=== PATIENT | male | born 1945 | race Caucasian/White ===

== ENCOUNTER 2017-05-13 06:47 | Inpatient (IN) | payer MEDICARE, MEDICAID ==
[2017-05-13] VITALS (23 sets, daily range): BP systolic 111–156; BP diastolic 48–103
[~2017-05-13] VITALS: Ht 175.3 cm; Wt 95.8 kg
[~2017-05-13 06:47] MED LIST: AMLO2.5T45 PO; ASPI-1159 PO; ASPI-986 PO; CHOL100044 GT; CLON0.2T12; FURO20TA4 PO; GABA-531 PO; GLUC1CAP8 PO; INSLIS SQ; INSU300I SQ; LOSA25TA12; METO50TA5 PO; MULT-1008 PO; PRAS10TA6 PO; RANO500T3 PO; SIMV20TA6; TAMS0.4C31 PO; TRAM50TA3 PO
[2017-05-13] MEDS ORDERED: TICA90TA PO (08:51)
[2017-05-13] MEDS ORDERED: ASCO500W7 PO (08:51)
[2017-05-13] MEDS ORDERED: MIDAZOLAM HCL 2 MG/2 ML VIAL ONE ×2 (10:23→11:48)
[2017-05-13] MEDS ORDERED: IODIXANOL 320MG/ML 100 ML BOTTLE IV ONE (10:24)
[2017-05-13] MEDS ORDERED: LIDOCAINE HCL 1% 20ML VIAL (Pyxis) INJ ONE (10:24)
[2017-05-13] MEDS ORDERED: FENTANYL CITRATE/PF 50MCG/ML 2ML VIAL ONE (10:24)
[2017-05-13] MEDS ORDERED: IODIXANOL 320MG/ML 200ML BOTTLE ONE (10:39)
[2017-05-13] MEDS ORDERED: HEPARIN SODIUM 1,000 UNIT/1ML VIAL IV ONE ×2 (10:44→11:11)
[2017-05-13] MEDS ORDERED: IOVERSOL 240MG/ML 100ML BOTTLE IV ONE (11:17)
[2017-05-13] MEDS ORDERED: ATROPINE SULFATE 0.1MG/ML 10ML DISP.SYRIN ONE (11:48)
[2017-05-13] MEDS ORDERED: ASPIRIN 325MG TABLET ONE (12:16)
[2017-05-13] MEDS ORDERED: TICAGRELOR 90 MG TABLET PO ONE (12:16)
[2017-05-13] MEDS ORDERED: DEXTROSE 50% WATER 50ML SYRINGE IV PRN (12:30)
[2017-05-13] MEDS ORDERED: SODIUM CHLORIDE 0.45% 1,000 ML IV ONE (12:30)
[2017-05-13] MEDS: INSULIN LISPRO 100 UNITS/ML SUBCUT SCH ×3 (12:57→21:43)
[2017-05-13] MEDS ORDERED: LOSARTAN POTASSIUM 25 MG TABLET PO SCH (13:00)
[2017-05-13] MEDS ORDERED: AMLODIPINE 2.5MG TABLET PO SCH (13:00)
[2017-05-13] MEDS: CLONIDINE 0.2MG TABLET PO SCH (13:00)
[2017-05-13] MEDS: BLOOD SUGAR DIAGNOSTIC STRIP TEST SCH ×3 (13:24→21:44)
[2017-05-13] MEDS: TAMSULOSIN HCL 0.4MG SR CAPSULE PO SCH (13:31)
[2017-05-13] MEDS: FUROSEMIDE 20MG TABLET PO SCH (13:31)
[2017-05-13] MEDS: TICAGRELOR 90 MG TABLET PO SCH (13:32)
[2017-05-13] MEDS: METOPROLOL TARTRATE 50MG TABLET PO SCH ×2 (14:10→21:41)
[2017-05-13] MEDS: CHOLECALCIFEROL (D3) 1000 UNIT TABLET GT SCH (14:34)
[2017-05-13] MEDS ORDERED: ZOLPIDEM TARTRATE 5MG TABLET PO PRN (14:45)
[2017-05-13] MEDS: GABAPENTIN 300MG CAPSULE PO SCH (16:22)
[2017-05-13] MEDS: RANOLAZINE 500 MG TAB.SR.12H PO SCH (16:22)
[2017-05-13] MEDS: LOSARTAN POTASSIUM 50 MG TABLET PO SCH ×2 (16:48→21:41)
[2017-05-13] MEDS ORDERED: ATORVASTATIN CALCIUM 10MG TABLET PO SCH (21:00)
[2017-05-13] MEDS ORDERED: INSULIN DETEMIR UD 100 UNITS/ML SYR SUBCUT SCH ×2 (21:00→22:00)
[2017-05-13] MEDS ORDERED: MEDICATION NOT ON FORMULARY EA (Simvastatin 20 MG) PO SCH (21:00)
[2017-05-14] VITALS (8 sets, daily range): BP systolic 111–141; BP diastolic 43–78
[2017-05-14] MEDS: BLOOD SUGAR DIAGNOSTIC STRIP TEST SCH ×2 (06:06→11:34)
[2017-05-14 07:32] LABS: BASOPHILS % 0.6 % (0.0-2.0); HEMATOCRIT. 31.7 % (42.0-52.0); HEMOGLOBIN. 10.8 g/dL (14.0-18.0); LYMPHOCYTES % 20.1 % (20.0-50.0); MEAN CORPUSCULAR HEMOGLOBIN 29.9 pg (28.0-32.0); MEAN PLATELET VOLUME 8.4 fl (7.4-10.4); MONOCYTES % 9.4 % (2.0-8.0); NEUTROPHILS % 64.9 % (40.0-76.0); PLATELET 248 x1000/uL (130-400); RED CELL DISTRIBUTION WIDTH 12.9 % (11.6-14.6)
[2017-05-14] MEDS: TICAGRELOR 90 MG TABLET PO SCH (08:48)
[2017-05-14] MEDS: CHOLECALCIFEROL (D3) 1000 UNIT TABLET GT SCH (08:48)
[2017-05-14] MEDS: METOPROLOL TARTRATE 50MG TABLET PO SCH (08:49)
[2017-05-14] MEDS: FUROSEMIDE 20MG TABLET PO SCH (08:52)
[2017-05-14] MEDS: TAMSULOSIN HCL 0.4MG SR CAPSULE PO SCH (08:52)
[2017-05-14] MEDS: RANOLAZINE 500 MG TAB.SR.12H PO SCH (08:52)
[2017-05-14] MEDS: GABAPENTIN 300MG CAPSULE PO SCH (08:56)
[2017-05-14] MEDS ORDERED: ASPIRIN 81MG EC TABLET PO SCH (09:00)
[2017-05-14] MEDS ORDERED: INSULIN GLARGINE HUM REC ANLOG 40 UNIT SQ SCH (09:00)
[2017-05-14] MEDS ORDERED: AMLODIPINE 5MG TABLET PO SCH (09:00)
[2017-05-14] MEDS ORDERED: [UNRECOGNIZED DRUG - OTHER] SQ SCH (09:00)
[2017-05-14] MEDS: CLONIDINE 0.2MG TABLET PO SCH (09:32)
[2017-05-14] MEDS: LOSARTAN POTASSIUM 50 MG TABLET PO SCH (09:32)
[2017-05-14] MEDS: INSULIN LISPRO 100 UNITS/ML SUBCUT SCH (12:20)
== END 2017-05-14 12:20 | disposition home or self-care (01) | DRG 247 ==
LOC: CCL 06:47 → 3WST 06:48
PROVIDERS: ADMIT Specialist; ATTEND Specialist
PROC: 027034Z Dilation of Coronary Artery, One Artery with Drug-eluting Intraluminal Device, Percutaneous Approach (ICD-10-PCS; principal; 2017-05-13)
PROC: 4A023N7 Measurement of Cardiac Sampling and Pressure, Left Heart, Percutaneous Approach (ICD-10-PCS; 2017-05-13)
PROC: B2111ZZ Fluoroscopy of Multiple Coronary Arteries using Low Osmolar Contrast (ICD-10-PCS; 2017-05-13)
DX: T82.855A Stenosis of coronary artery stent, initial encounter (principal); E11.22 Type 2 diabetes mellitus with diabetic chronic kidney disease; I11.9 Hypertensive heart disease without heart failure; I25.110 Atherosclerotic heart disease of native coronary artery with unstable angina pectoris; I27.2 Other secondary pulmonary hypertension; D63.8 Anemia in other chronic diseases classified elsewhere; E78.5 Hyperlipidemia, unspecified; I13.10 Hypertensive heart and chronic kidney disease without heart failure, with stage 1 through stage 4 chronic kidney disease, or unspecified chronic kidney disease; N18.9 Chronic kidney disease, unspecified; Y83.1 Surgical operation with implant of artificial internal device as the cause of abnormal reaction of the patient, or of later complication, without mention of misadventure at the time of the procedure; N40.0 Benign prostatic hyperplasia without lower urinary tract symptoms; I25.2 Old myocardial infarction; Z79.4 Long term (current) use of insulin; Z79.82 Long term (current) use of aspirin; Z87.891 Personal history of nicotine dependence; Z82.49 Family history of ischemic heart disease and other diseases of the circulatory system
CPT/HCPCS: 36415; 80048; 82962; 85025; 85347; 92921; 92928; 93005; 93458; C1725; C1769; C1874; C1887; C1893; J0461; J1644; J1815; J2250; J3010; J3490; Q9967; J8499

== ENCOUNTER 2019-02-13 19:43 | Inpatient (IN) | payer MEDICARE, MEDICAID ==
[~2019-02-13] VITALS: Ht 172.7 cm; Wt 81.7 kg
[~2019-02-13 19:43] MED LIST changes: +ASCO500W7 PO; -ASPI-1159 PO; +ASPI-1393 PO; -ASPI-986 PO; -CLON0.2T12; +CLON0.2T12 PO; -LOSA25TA12; +LOSA25TA26 PO; +METO-539 PO; -METO50TA5 PO; -PRAS10TA6 PO; -SIMV20TA6; +SIMV20TA6 PO; +TICA90TA PO
[2019-02-13] MEDS ORDERED: FUROSEMIDE 40MG/4ML VIAL IV ONE (20:45)
[2019-02-13 20:50] LABS: CLARITY URINE CLEAR (CLEAR); COLOR URINE YELLOW (YELLOW); KETONES URINE NEGATIVE (NEGATIVE); LEUKOCYTE ESTERASE URINE NEGATIVE (NEGATIVE); NITRITE URINE NEGATIVE (NEGATIVE); OCCULT BLOOD URINE NEGATIVE (NEGATIVE); PH URINE 6.5 (4.5-8.0); PROTEIN URINE 1+ (NEGATIVE); SPECIFIC GRAVITY URINE 1.007 (1.005-1.030); UROBILINOGEN URINE 0.2 E.U./dL (0.2-1.0)
[2019-02-13 21:05] LABS: BASOPHILS % 0.5 % (0.0-2.0); EOSINOPHILS % 3.1 % (0.0-5.0); HEMATOCRIT. 31.5 % (42.0-52.0); HEMOGLOBIN. 10.7 g/dL (14.0-18.0); LYMPHOCYTES % 18.3 % (20.0-50.0); MEAN CORPUSCULAR VOLUME 88.1 fL (80.0-94.0); MONOCYTES % 9.2 % (2.0-8.0); NEUTROPHILS % 68.9 % (40.0-76.0); PLATELET 205 x1000/uL (130-400); RED BLOOD CELL COUNT 3.57 mill/uL (4.7-6.1); RED CELL DISTRIBUTION WIDTH 14.9 % (11.6-14.6)
[2019-02-13 21:09] LABS: CHLORIDE 108 mEq/L (98-107)
[2019-02-13 21:12] LABS: INR 1.2; PARTIAL THROMBOPLASTIN TIME 29.6 sec (23.4-31.0); PROTHROMBIN TIME 11.8 sec (9.6-11.0)
[2019-02-14] MEDS ORDERED: TAMSULOSIN HCL 0.4MG SR CAPSULE PO ONE (01:00)
[2019-02-14] MEDS ORDERED: METOPROLOL TARTRATE 25MG TABLET PO ONE (01:00)
[2019-02-14] MEDS ORDERED: GABAPENTIN 300MG CAPSULE PO ONE (01:00)
[2019-02-14 03:00] VITALS: BP 141/63
[2019-02-14] MEDS ORDERED: LATA2.5D2 EACHEYE (04:11)
[2019-02-14] MEDS ORDERED: CLOP75TA4 PO (04:13)
[2019-02-14] MEDS ORDERED: CLONIDINE 0.1MG TABLET PO PRN (06:15)
[2019-02-14] MEDS ORDERED: ACETAMINOPHEN 325MG TABLET PO PRN (06:15)
[2019-02-14] MEDS ORDERED: ONDANSETRON HCL 4MG/2ML INJ IV PRN (06:15)
[2019-02-14] MEDS ORDERED: HYDROCODONE/ACETAMINOPHEN 5/325MG TABLET PO PRN (06:15)
[2019-02-14] MEDS ORDERED: DEXTROSE 50% WATER 50ML SYRINGE IV PRN (06:30)
[2019-02-14] MEDS: INSULIN LISPRO 100 UNITS/ML SUBCUT SCH ×4 (06:47→22:09)
[2019-02-14] MEDS: BLOOD SUGAR DIAGNOSTIC STRIP TEST SCH ×4 (06:47→21:00)
[2019-02-14 08:00] VITALS: BP 127/53
[2019-02-14] MEDS: AMLODIPINE 10MG TABLET PO SCH (08:47)
[2019-02-14] MEDS: HYDRALAZINE HCL 25MG TABLET PO SCH ×2 (08:48→22:07)
[2019-02-14] MEDS: ENOXAPARIN 40MG/0.4ML SYR SUBCUT SCH (08:50)
[2019-02-14] MEDS ORDERED: FUROSEMIDE 40MG/4ML VIAL IV SCH (09:00)
[2019-02-14] MEDS: CLOPIDOGREL 75MG TABLET PO SCH (10:13)
[2019-02-14] MEDS: DOCUSATE SODIUM 100MG CAPSULE PO PRN (10:14)
[2019-02-14] MEDS: ASPIRIN 81MG TABLET PO SCH (10:14)
[2019-02-14] MEDS: NITROGLYCERIN OINT 1GM/INCH UDPKT TD SCH ×3 (10:14→22:08)
[2019-02-14 12:00] VITALS: BP 135/59
[2019-02-14 16:00] VITALS: BP 136/60
[2019-02-14 16:24] LABS: CREATINE KINASE 143 IU/L (39-308)
[2019-02-14 16:25] LABS: CREATINE KINASE MB FRACTION 3.4 ng/mL (0.5-3.6)
[2019-02-14] MEDS: FUROSEMIDE 40MG/4ML VIAL IV SCH (17:09)
[2019-02-14 20:00] VITALS: BP 143/60
[2019-02-14] MEDS: ATORVASTATIN CALCIUM 40MG TABLET PO SCH (22:06)
[2019-02-15] VITALS: BP 128/62
[2019-02-15 00:15] LABS: CREATINE KINASE 141 IU/L (39-308)
[2019-02-15 00:16] LABS: CREATINE KINASE MB FRACTION 3.5 ng/mL (0.5-3.6)
[2019-02-15 04:00] VITALS: BP 123/53
[2019-02-15] MEDS: NITROGLYCERIN OINT 1GM/INCH UDPKT TD SCH ×3 (05:24→21:41)
[2019-02-15 07:02] LABS: BASOPHILS % 0.7 % (0.0-2.0); EOSINOPHILS % 5.9 % (0.0-5.0); HEMATOCRIT. 30.5 % (42.0-52.0); HEMOGLOBIN. 10.4 g/dL (14.0-18.0); LYMPHOCYTES % 20.8 % (20.0-50.0); MEAN CORPUSCULAR VOLUME 87.6 fL (80.0-94.0); MEAN PLATELET VOLUME 9.2 fl (7.4-10.4); MONOCYTES % 11.1 % (2.0-8.0); NEUTROPHILS % 61.5 % (40.0-76.0); PLATELET 218 x1000/uL (130-400); RED BLOOD CELL COUNT 3.48 mill/uL (4.7-6.1); RED CELL DISTRIBUTION WIDTH 14.3 % (11.6-14.6)
[2019-02-15 07:06] LABS: CHLORIDE 102 mEq/L (98-107)
[2019-02-15 07:13] LABS: LDL CHOLESTEROL 32 mg/dL (5-100)
[2019-02-15 07:14] LABS: HDL CHOLESTEROL 39 mg/dL (40-59)
[2019-02-15 08:00] VITALS: BP 114/52
[2019-02-15] MEDS: BLOOD SUGAR DIAGNOSTIC STRIP TEST SCH ×4 (08:13→21:41)
[2019-02-15] MEDS: CLOPIDOGREL 75MG TABLET PO SCH (08:14)
[2019-02-15] MEDS: ASPIRIN 81MG TABLET PO SCH (08:14)
[2019-02-15] MEDS: FUROSEMIDE 40MG/4ML VIAL IV SCH ×2 (08:15→18:04)
[2019-02-15] MEDS: AMLODIPINE 10MG TABLET PO SCH (08:15)
[2019-02-15] MEDS: HYDRALAZINE HCL 25MG TABLET PO SCH ×2 (08:15→21:40)
[2019-02-15] MEDS: INSULIN LISPRO 100 UNITS/ML SUBCUT SCH ×4 (08:16→21:57)
[2019-02-15] MEDS: ENOXAPARIN 40MG/0.4ML SYR SUBCUT SCH (08:16)
[2019-02-15 12:00] VITALS: BP 129/54
[2019-02-15 16:00] VITALS: BP 124/61
[2019-02-15] MEDS ORDERED: INSU100I38 SQ (16:21)
[2019-02-15] MEDS ORDERED: ASPI-986 PO (16:21)
[2019-02-15] MEDS ORDERED: INSU100I13 SQ (16:21)
[2019-02-15] MEDS ORDERED: FLUT1BLS IH (16:24)
[2019-02-15] MEDS: DOCUSATE SODIUM 100MG CAPSULE PO PRN (18:18)
[2019-02-15 20:00] VITALS: BP 130/76
[2019-02-15] MEDS: ATORVASTATIN CALCIUM 40MG TABLET PO SCH (21:40)
[2019-02-16] VITALS (16 sets, daily range): BP systolic 97–169; BP diastolic 54–75
[2019-02-16] MEDS: BLOOD SUGAR DIAGNOSTIC STRIP TEST SCH ×3 (05:52→20:47)
[2019-02-16] MEDS: NITROGLYCERIN OINT 1GM/INCH UDPKT TD SCH ×3 (05:52→21:09)
[2019-02-16 06:58] LABS: BASOPHILS % 0.5 % (0.0-2.0); EOSINOPHILS % 5.4 % (0.0-5.0); HEMATOCRIT. 34.9 % (42.0-52.0); HEMOGLOBIN. 11.6 g/dL (14.0-18.0); LYMPHOCYTES % 17.3 % (20.0-50.0); MEAN CORPUSCULAR HEMOGLOBIN 29.2 pg (28.0-32.0); MEAN CORPUSCULAR VOLUME 88.2 fL (80.0-94.0); MEAN PLATELET VOLUME 8.9 fl (7.4-10.4); MONOCYTES % 10.7 % (2.0-8.0); NEUTROPHILS % 66.1 % (40.0-76.0); PLATELET 251 x1000/uL (130-400); RED BLOOD CELL COUNT 3.95 mill/uL (4.7-6.1); RED CELL DISTRIBUTION WIDTH 14.3 % (11.6-14.6)
[2019-02-16 07:09] LABS: CHLORIDE 98 mEq/L (98-107)
[2019-02-16] MEDS: INSULIN LISPRO 100 UNITS/ML SUBCUT SCH ×4 (08:10→21:14)
[2019-02-16] MEDS: CLOPIDOGREL 75MG TABLET PO SCH (09:00)
[2019-02-16] MEDS: ASPIRIN 81MG TABLET PO SCH (09:00)
[2019-02-16] MEDS: AMLODIPINE 10MG TABLET PO SCH (09:00)
[2019-02-16] MEDS: FUROSEMIDE 40MG/4ML VIAL IV SCH ×2 (09:26→17:55)
[2019-02-16] MEDS: SODIUM CHLORIDE 0.45% 1,000 ML IV SCH ×2 (09:27→22:31)
[2019-02-16 11:20] LABS: BG BASE EXCESS 4.1 mmol/L (-2.0-2.0); BG CARBOXYHEMOGLOBIN 0.5 % (0.5-1.5); BG DEOXYHEMOGLOBIN 4.6 % (0.0-5.0); BG HCO3 ACT 27.8 mmol/L (22.0-26.0); BG METHEMOGLOBIN 0.2 % (0.0-1.5); BG OXYGEN SATURATION 95.4 % (92.0-98.5); BG OXYHEMOGLOBIN 94.7 % (94.0-97.0); BG PCO2 38.6 mmHg (35.0-45.0); BG PH 7.475 (7.350-7.450); BG PO2 79.3 mmHg (75.0-100.0); BG SAMPLE SITE RIGHT RADIAL; BG VENT MODE ROOM AIR
[2019-02-16] MEDS ORDERED: HEPARIN SODIUM 1,000 UNIT/1ML VIAL IV ONE (13:16)
[2019-02-16] MEDS ORDERED: NICARDIPINE 100MCG/ML 10ML VIAL (CATH LAB) IV ONE (13:16)
[2019-02-16] MEDS ORDERED: NITROGLYCERIN 50MCG/ML 10ML VIAL (CATH LAB) IV ONE (13:16)
[2019-02-16] MEDS ORDERED: IODIXANOL 320MG/ML 200ML BOTTLE ONE (15:59)
[2019-02-16] MEDS ORDERED: LIDOCAINE HCL 1% 20ML VIAL (Pyxis) INJ ONE (15:59)
[2019-02-16] MEDS ORDERED: MIDAZOLAM HCL 2 MG/2 ML VIAL ONE (16:18)
[2019-02-16] MEDS ORDERED: FENTANYL CITRATE/PF 50MCG/ML 2ML VIAL ONE (16:19)
[2019-02-16] MEDS ORDERED: PROTAMINE SULFATE 10MG/ML VIAL 5ML IV ONE (16:40)
[2019-02-16] MEDS ORDERED: ACETAMINOPHEN 325MG TABLET PO PRN (17:00)
[2019-02-16] MEDS ORDERED: ATROPINE SULFATE 1MG/10ML SYR IV PRN (17:00)
[2019-02-16] MEDS ORDERED: INSULIN GLARGINE UD 100 UNITS/ML SYR SUBCUT SCH (22:00)
[2019-02-16] MEDS: GABAPENTIN 300MG CAPSULE PO SCH (22:30)
[2019-02-17] VITALS (10 sets, daily range): BP systolic 100–130; BP diastolic 52–68
[2019-02-17 06:21] LABS: BASOPHILS % 0.7 % (0.0-2.0); EOSINOPHILS % 5.3 % (0.0-5.0); HEMATOCRIT. 32.9 % (42.0-52.0); HEMOGLOBIN. 11.2 g/dL (14.0-18.0); LYMPHOCYTES % 23.2 % (20.0-50.0); MEAN CORPUSCULAR HEMOGLOBIN 29.9 pg (28.0-32.0); MEAN CORPUSCULAR VOLUME 88.2 fL (80.0-94.0); MEAN PLATELET VOLUME 8.8 fl (7.4-10.4); MONOCYTES % 11.9 % (2.0-8.0); NEUTROPHILS % 58.9 % (40.0-76.0); PLATELET 235 x1000/uL (130-400); RED BLOOD CELL COUNT 3.73 mill/uL (4.7-6.1); RED CELL DISTRIBUTION WIDTH 14.3 % (11.6-14.6)
[2019-02-17] MEDS: BLOOD SUGAR DIAGNOSTIC STRIP TEST SCH ×3 (06:21→16:35)
[2019-02-17] MEDS: NITROGLYCERIN OINT 1GM/INCH UDPKT TD SCH ×2 (06:27→14:50)
[2019-02-17] MEDS ORDERED: TAMSULOSIN HCL 0.4MG SR CAPSULE PO SCH (07:45)
[2019-02-17] MEDS: INSULIN LISPRO 100 UNITS/ML SUBCUT SCH ×2 (07:57→12:20)
[2019-02-17] MEDS: CLOPIDOGREL 75MG TABLET PO SCH (08:15)
[2019-02-17] MEDS: GABAPENTIN 300MG CAPSULE PO SCH (08:15)
[2019-02-17] MEDS: DOCUSATE SODIUM 100MG CAPSULE PO PRN (08:15)
[2019-02-17] MEDS: FUROSEMIDE 40MG/4ML VIAL IV SCH (08:15)
[2019-02-17] MEDS: AMLODIPINE 10MG TABLET PO SCH (08:15)
[2019-02-17] MEDS ORDERED: ASPIRIN 325MG TABLET PO SCH (09:00)
[2019-02-17] MEDS ORDERED: CLOPIDOGREL 75MG TABLET PO SCH (09:00)
[2019-02-17] MEDS ORDERED: INSULIN GLARGINE UD 100 UNITS/ML SYR SUBCUT SCH (10:45)
[2019-02-17] MEDS ORDERED: INSULIN LISPRO 100 UNITS/ML SUBCUT NR ×3 (12:30→16:30)
[2019-02-17] MEDS ORDERED: FUROSEMIDE 40MG TABLET PO SCH (18:00)
[2019-02-17] MEDS ORDERED: LATANOPROST 0.005% OPHTH DROPS 2.5ML EACHEYE SCH (21:00)
== END 2019-02-17 18:14 | disposition home health service (06) | DRG 287 ==
LOC: ER 19:43 → 5WST 23:17 → EDBEDREQTM 23:23 → EDBEDREQ 23:23 → EDBEDREQTM 23:26 → ENRESERV 02-14 01:43 → 7WST 02-14 20:00 → 3WST 02-16 17:08
PROVIDERS: ADMIT Internal Medicine; ATTEND Internal Medicine
PROC: 4A023N7 Measurement of Cardiac Sampling and Pressure, Left Heart, Percutaneous Approach (ICD-10-PCS; principal; 2019-02-16)
PROC: B218YZZ Fluoroscopy of Left Internal Mammary Bypass Graft using Other Contrast (ICD-10-PCS; 2019-02-16)
PROC: B213YZZ Fluoroscopy of Multiple Coronary Artery Bypass Grafts using Other Contrast (ICD-10-PCS; 2019-02-16)
PROC: B211YZZ Fluoroscopy of Multiple Coronary Arteries using Other Contrast (ICD-10-PCS; 2019-02-16)
DX: I11.0 Hypertensive heart disease with heart failure (principal); D68.59 Other primary thrombophilia; N17.9 Acute kidney failure, unspecified; T82.855A Stenosis of coronary artery stent, initial encounter; I50.23 Acute on chronic systolic (congestive) heart failure; D63.8 Anemia in other chronic diseases classified elsewhere; E11.65 Type 2 diabetes mellitus with hyperglycemia; I25.10 Atherosclerotic heart disease of native coronary artery without angina pectoris; I27.20 Pulmonary hypertension, unspecified; E78.5 Hyperlipidemia, unspecified; N40.0 Benign prostatic hyperplasia without lower urinary tract symptoms; Y83.1 Surgical operation with implant of artificial internal device as the cause of abnormal reaction of the patient, or of later complication, without mention of misadventure at the time of the procedure; Y92.89 Other specified places as the place of occurrence of the external cause; I25.2 Old myocardial infarction; Z95.1 Presence of aortocoronary bypass graft; Z95.5 Presence of coronary angioplasty implant and graft; Z79.4 Long term (current) use of insulin; Z87.891 Personal history of nicotine dependence; Z79.82 Long term (current) use of aspirin; Z79.899 Other long term (current) drug therapy
CPT/HCPCS: 36415; 36600; 71045; 76770; 80048; 80061; 82375; 82550; 82553; 82805; 82962; 83880; 84153; 84484; 93005; 93306; 93459; 93970; 96374; 99285; C1769; C1887; C1893; J1644; J1650; J1815; J1940; J2250; J2720; J3010; J3490; Q9967; G0103